=== PATIENT | male | born 1935 | race Caucasian/White ===

== ENCOUNTER 2017-03-20 05:23 | Inpatient (IN) | payer MEDICARE, OTHER ==
[~2017-03-20] VITALS: Ht 172.7 cm; Wt 58.1 kg
--- NOTE | 2017-03-20 05:40 | NUR ---
PT B/B PRIVATE AMBULANCE FROM [facility] TO [facility] . PT WAS PLACED ON 5150 BY TATI WASHINGTON FOR GRAVELY DISABLE. COOPERATIVE AND CALM.
[2017-03-20] MEDS ORDERED: BRIM5DRO3 EACHEYE (06:01)
[2017-03-20] MEDS ORDERED: SUCR1ORA PO (06:01)
[2017-03-20] MEDS ORDERED: VENL75CA56 PO (06:01)
[2017-03-20] MEDS ORDERED: FLUT9.9S NS (06:01)
[2017-03-20] MEDS ORDERED: LEVO25TA2 PO (06:01)
[2017-03-20] MEDS ORDERED: LISI2.5T2 PO (06:01)
[2017-03-20] MEDS ORDERED: BIMA2.5D5 EACHEYE (06:01)
[2017-03-20] MEDS ORDERED: LOPE2TAB25 PO (06:01)
[2017-03-20] MEDS ORDERED: DIGO125T20 PO (06:01)
[2017-03-20] MEDS ORDERED: ACET325T53 PO (06:01)
[2017-03-20] MEDS ORDERED: CARB1DRO7 OP (06:01)
[2017-03-20] MEDS ORDERED: HYDR-3976 PO (06:01)
[2017-03-20] MEDS ORDERED: ATOR80TA PO (06:01)
[2017-03-20] MEDS ORDERED: ALPR0.255 PO (06:01)
[2017-03-20] MEDS ORDERED: MIRT15TA7 PO (06:01)
[2017-03-20] MEDS ORDERED: NITR0.4T SL (06:01)
[2017-03-20] MEDS ORDERED: FERR325T28 PO (06:01)
[2017-03-20] MEDS ORDERED: ZOLP10TA2 PO (06:01)
[2017-03-20] MEDS ORDERED: HYDR20CR3 TOP (06:01)
[2017-03-20] MEDS ORDERED: PANT40TA2 PO (06:01)
[2017-03-20] MEDS ORDERED: CARV6.252 PO (06:01)
--- NOTE | 2017-03-20 06:07 | NUR ---
SEEN AND EVALUATED BY ZULMA ,REPORT GIVEN TO [facility] ADMITTED TO [facility]IA [facility] IN STABLE CONDITION.
[2017-03-20 06:30] VITALS: BP 141/74
[2017-03-20] MEDS ORDERED: MAG HYDROX/AL HYDROX/SIMETH 30 ML LIQUID UDC PO PRN ×2 (06:45→10:00)
[2017-03-20] MEDS ORDERED: ACETAMINOPHEN 325 MG TABLET PO PRN (06:45)
[2017-03-20] MEDS ORDERED: CLONAZEPAM 0.5 MG TABLET PO PRN (06:45)
[2017-03-20] MEDS ORDERED: TEMAZEPAM 7.5 MG CAPSULE PO PRN (06:45)
[2017-03-20] MEDS ORDERED: MAGNESIUM HYDROXIDE 30 ML LIQUID UDC PO PRN ×2 (06:45→10:00)
[2017-03-20 07:30] VITALS: BP 132/87
--- NOTE | 2017-03-20 07:51 | NUR ---
GPS/RN- LAST DIGOXIN LEVEL DRAWN AT [facility] ON 03/19/17 @6273 WAS 0.9.
--- NOTE | 2017-03-20 08:22 | NUR ---
GPS/RN- patient is alert and oriented to person place and time,hard of hearing, patient denies any hallucinations, denies any suicidal or homicidal ideation. patient is cooperative, redirected to current hold, informed of patient rights guidelines and unit rules, pleasant on approach.
--- NOTE | 2017-03-20 10:01 | NUR ---
GPS/RN- Received call from Dr Roe verifying that this patient was admitted, patient is currently under her care at the [facility], confirmed with intake. patient admitted under Dr Pierce in error changed to Dr Dhillon
[2017-03-20] MEDS ORDERED: HYDROCORTISONE 2.5% CREAM 20 GM TUBE TOP PRN (10:30)
[2017-03-20] MEDS ORDERED: NITROGLYCERIN 0.4 MG/TAB BOTTLE SL PRN (10:30)
[2017-03-20] MEDS: VENLAFAXINE XR 37.5 MG CAP.SR.24H PO SCH ×2 (12:22→17:56)
[2017-03-20] MEDS: DIVALPROEX SPRINKLE 125 MG CAP.SPRINK PO SCH ×2 (12:22→20:14)
[2017-03-20] MEDS: SUCRALFATE 1 G/10 ML LIQUID UDC PO SCH ×3 (12:22→20:14)
[2017-03-20] MEDS ORDERED: BRIMONIDINE-P 0.1% OPHTH DROP 5 ML DROPS EACHEYE SCH (13:00)
[2017-03-20] MEDS: BRIMONIDINE 0.2% OPHT DROP 10 ML BOTTLE EACHEYE SCH ×2 (13:40→17:56)
[2017-03-20 16:00] VITALS: BP 111/64
[2017-03-20] MEDS ORDERED: PANTOPRAZOLE SODIUM 40 MG TABLET.DR PO SCH (17:00)
[2017-03-20] MEDS: FLUTICASONE PROP NASAL SPRAY 16 GM BOTTLE NS SCH (17:56)
[2017-03-20] MEDS: CARVEDILOL 6.25 MG TABLET PO SCH (17:57)
[2017-03-20] MEDS ORDERED: BIMATOPROST 0.01% OPHT DROP 2.5 ML BOTTLE EACHEYE SCH (18:00)
[2017-03-20] MEDS: PANTOPRAZOLE SODIUM 40 MG TABLET.DR PO SCH (19:38)
[2017-03-20 19:45] VITALS: BP 105/55
[2017-03-20] MEDS: MIRTAZAPINE 15 MG TABLET PO SCH (20:15)
[2017-03-20] MEDS: ATORVASTATIN 40 MG TABLET PO SCH (20:15)
[2017-03-20] MEDS: LATANOPROST OPHT DROP 2.5 ML BOTTLE EACHEYE SCH (20:23)
[2017-03-20] MEDS ORDERED: ALBUTEROL SULFATE 2.5 MG/ 0.5 ML NEBU NEB PRN (20:30)
[2017-03-20] MEDS ORDERED: Medication Not On Formulary EA (Atorvastatin Calcium (Lipitor) 40 MG) PO SCH (21:00)
[2017-03-20] MEDS: FLUTICASONE/SALMETEROL 250/50 INHALER INH SCH (21:43)
--- NOTE | 2017-03-20 22:00 | NUR ---
received to care, sitting in his room, interacting with his room mate. pleasant upon approach. compliant with medications and staff direction. as of 2199, he is awake, in bed. no distress noted. will continue to monitor closely.
[2017-03-20 22:21] LABS: *BILIRUBIN,URIN NEGATIVE (NEGATIVE); *BLOOD, URINE NEGATIVE (NEGATIVE); *CLARITY,URINE CLEAR (CLEAR); *COLOR,URINE YELLOW (YELLOW); *KETONES,URINE NEGATIVE (NEGATIVE); *PROTEIN,URINE NEGATIVE (NEGATIVE); *UROBILINOGEN,URINE 0.2 E.U./dl (NORMAL); LEUKOCYTE ESTERASE ,URINE NEGATIVE (NEGATIVE); NITRITE, URINE NEGATIVE (NEGATIVE); UGLUCOSE NEGATIVE (NEGATIVE)
[2017-03-20 22:38] LABS: WBC,URINE 0-3 /HPF (0-3)
[2017-03-20] MEDS: ALPRAZOLAM 0.25 MG TABLET PO PRN (22:59)
--- NOTE | 2017-03-20 22:59 | NUR ---
remains awake. pacing the hallway, asking for something to eat. PRN xanax given for anxiety. snack given, and he went back to his room. will continue to monitor closely.
[2017-03-21] MEDS: PANTOPRAZOLE SODIUM 40 MG TABLET.DR PO SCH ×2 (05:55→18:11)
[2017-03-21] MEDS: LEVOTHYROXINE SODIUM 25 MCG TABLET PO SCH (05:55)
--- NOTE | 2017-03-21 06:00 | NUR ---
slept 7 hours, toyolanda.
[2017-03-21 07:12] LABS: BASOPHILS % (AUTO) 0.4 % (0.0-2.0); EOSINOPHILS # (AUTO) 0.2 K/uL (0.0-0.7); EOSINOPHILS % (AUTO) 3.2 % (0.0-7.0); HEMATOCRIT 34.7 % (40-50); HEMOGLOBIN 12.1 G/DL (14.0-18.0); LYMPHOCYTES # (AUTO) 0.8 K/UL (0.8-4.8); LYMPHOCYTES % (AUTO) 14.8 % (20.5-51.5); MEAN CORPUSCULAR HGB CONC 35 g/dL (32.0-37.0); MEAN CORPUSCULAR VOLUME 89.1 FL (82.0-92.0); MONOCYTES # (AUTO) 0.6 K/UL (0.1-1.30); MONOCYTES % (AUTO) 10.4 % (0.0-11.0); NEUTROPHILS # (AUTO) 3.8 K/UL (1.8-8.9); NEUTROPHILS % (AUTO) 71.2 % (38.5-71.5); PLATELET COUNT (AUTO) 124 K/UL (150-450); RED CELL DISTRIBUTION WIDTH 14.2 % (11.5-14.5); WHITE BLOOD COUNT (AUTO) 5.4 K/UL (4.0-11.2)
[2017-03-21 07:27] LABS: THYROID STIMULATING HORMONE 1.642 mIU/mL (0.358-3.740)
[2017-03-21 07:29] LABS: ALBUMIN 3.8 g/dL (3.4-5.0); BILIRUBIN,TOTAL 0.6 mg/dL (0.2-1.0); CALCIUM 8.9 mg/dL (8.5-10.1); CREATININE 1.1 mg/dL (0.6-1.3); MAGNESIUM 1.8 mg/dL (1.8-2.4); PHOSPHOROUS 4.1 mg/dL (2.5-4.9)
[2017-03-21 07:30] VITALS: BP 133/76
[2017-03-21] MEDS: DIGOXIN 125 MCG TABLET PO SCH (08:46)
[2017-03-21] MEDS: ASPIRIN EC 81 MG TABLET.DR PO SCH (08:47)
[2017-03-21] MEDS: DIVALPROEX SPRINKLE 125 MG CAP.SPRINK PO SCH ×2 (08:47→20:01)
[2017-03-21] MEDS: FERROUS SULFATE 325 MG TABEC PO SCH (08:47)
[2017-03-21] MEDS: VENLAFAXINE XR 37.5 MG CAP.SR.24H PO SCH ×2 (08:47→16:59)
[2017-03-21] MEDS: FLUTICASONE/SALMETEROL 250/50 INHALER INH SCH ×2 (08:48→20:02)
[2017-03-21] MEDS: LISINOPRIL 5 MG TABLET PO SCH (09:01)
[2017-03-21] MEDS: SUCRALFATE 1 G/10 ML LIQUID UDC PO SCH ×4 (10:15→20:01)
[2017-03-21] MEDS: CARVEDILOL 6.25 MG TABLET PO SCH ×2 (10:16→16:59)
[2017-03-21] MEDS: FLUTICASONE PROP NASAL SPRAY 16 GM BOTTLE NS SCH ×2 (10:19→17:00)
[2017-03-21] MEDS: BRIMONIDINE 0.2% OPHT DROP 10 ML BOTTLE EACHEYE SCH ×3 (10:19→17:00)
--- NOTE | 2017-03-21 11:03 | NUR ---
GPS/RN- Patient frequently removing hearing aids, redirected frequently redirected to keep on or he will loose them . patient forgetful; continue to monitor.
[2017-03-21] MEDS: ACETAMINOPHEN 325 MG TABLET PO PRN ×2 (11:04→21:15)
--- NOTE | 2017-03-21 12:02 | NUR ---
Initial discharge instructions: Patient resides at the [facility] [[address] [place] [address];[phone]].Per pt,he would like to return there upon discharge.FLORIDALMA called Robyn at the facility and left a voicemail requesting a call back.FLORIDALMA will speak with pt,son,and family regarding appropriate discharge plans.FLORIDALMA will form a safe and proper discharge.
--- NOTE | 2017-03-21 13:32 | NUR ---
GPS/RN- CT CANCELLED. PATIENT HAD CT ON 03/19/17 AT [facility]. COPY OF RESULTS IN CHART , DR HOLLIDAY INFORMED. CT CANCELLED
--- NOTE | 2017-03-21 14:11 | NUR ---
GPS/RN- patient coming to nursing station this afternoon verbalizing "why is there rachel much smoke in the hallways", patient hallucinating, redirected for emotional support, continue to monitor
[2017-03-21 15:05] VITALS: BP 107/57
[2017-03-21] MEDS ORDERED: ARIPIPRAZOLE 2 MG TABLET PO SCH (15:30)
--- NOTE | 2017-03-21 17:41 | NUR ---
pt has been visible on unit all shift in and out of room to day room, minimal peer interaction noted mostly with room mate who was d/c d.atient keeps takind bilateral hearing aides off have to remind him to keep in ears, continue to monitor pt s for safety
[2017-03-21 20:00] VITALS: BP 130/60
[2017-03-21] MEDS: MIRTAZAPINE 15 MG TABLET PO SCH (20:01)
[2017-03-21] MEDS: ATORVASTATIN 40 MG TABLET PO SCH (20:01)
[2017-03-21] MEDS: OLANZAPINE 2.5 MG TABLET PO SCH (20:03)
[2017-03-21] MEDS: LATANOPROST OPHT DROP 2.5 ML BOTTLE EACHEYE SCH (20:03)
[2017-03-21] MEDS ORDERED: OLANZAPINE 2.5 MG TABLET PO SCH (21:00)
--- NOTE | 2017-03-21 21:16 | NUR ---
GPS: PATIENT C/O HEADACHE TYLENOL 650 MG PO GIVEN.
--- NOTE | 2017-03-21 22:16 | NUR ---
GPS: PATIENT STATED I AM FEELING FINE NOW. PRN EFFECTIVE FOR HEADACHE.
[2017-03-21] MEDS: ALPRAZOLAM 0.25 MG TABLET PO PRN (22:35)
--- NOTE | 2017-03-21 22:36 | NUR ---
GPS: PATIENT C/O ANXIETY. XANAX 0.25 MG PO GIVEN.
--- NOTE | 2017-03-21 23:36 | NUR ---
GPS: PATIENT IS CALM NOW PRN EFFECTIVE FOR ANXIETY.
[2017-03-22] MEDS: LEVOTHYROXINE SODIUM 25 MCG TABLET PO SCH (06:09)
[2017-03-22] MEDS: PANTOPRAZOLE SODIUM 40 MG TABLET.DR PO SCH ×2 (06:09→19:59)
--- NOTE | 2017-03-22 06:31 | NUR ---
GPS: PATIENT REMAIN COOPERATIVE.SLEPT 05:30 HRS THROUGH THE NIGHT. CONTINUE PLAN OF CARE.
[2017-03-22] MEDS: SUCRALFATE 1 G/10 ML LIQUID UDC PO SCH ×4 (06:33→20:03)
[2017-03-22 07:30] VITALS: BP 137/74
[2017-03-22] MEDS: ASPIRIN EC 81 MG TABLET.DR PO SCH (09:14)
[2017-03-22] MEDS: VENLAFAXINE XR 37.5 MG CAP.SR.24H PO SCH ×2 (09:15→18:16)
[2017-03-22] MEDS: LISINOPRIL 5 MG TABLET PO SCH (09:15)
[2017-03-22] MEDS: DIVALPROEX SPRINKLE 125 MG CAP.SPRINK PO SCH ×2 (09:15→20:03)
[2017-03-22] MEDS: FERROUS SULFATE 325 MG TABEC PO SCH (09:15)
[2017-03-22] MEDS: CARVEDILOL 6.25 MG TABLET PO SCH ×2 (09:18→18:17)
[2017-03-22] MEDS: DIGOXIN 125 MCG TABLET PO SCH (09:18)
[2017-03-22] MEDS: BRIMONIDINE 0.2% OPHT DROP 10 ML BOTTLE EACHEYE SCH ×3 (09:22→17:00)
[2017-03-22] MEDS: FLUTICASONE PROP NASAL SPRAY 16 GM BOTTLE NS SCH ×2 (09:22→17:00)
[2017-03-22] MEDS: FLUTICASONE/SALMETEROL 250/50 INHALER INH SCH ×2 (09:22→20:02)
[2017-03-22 15:21] VITALS: BP 117/56
[2017-03-22 20:00] VITALS: BP 92/61
[2017-03-22] MEDS: LATANOPROST OPHT DROP 2.5 ML BOTTLE EACHEYE SCH (20:02)
[2017-03-22] MEDS: ATORVASTATIN 40 MG TABLET PO SCH (20:03)
[2017-03-22] MEDS: OLANZAPINE 2.5 MG TABLET PO SCH (20:03)
[2017-03-22] MEDS: MIRTAZAPINE 15 MG TABLET PO SCH (20:03)
[2017-03-22] MEDS: ALPRAZOLAM 0.25 MG TABLET PO PRN (21:28)
[2017-03-22] MEDS: ACETAMINOPHEN 325 MG TABLET PO PRN (21:28)
[2017-03-23] MEDS: SUCRALFATE 1 G/10 ML LIQUID UDC PO SCH ×4 (06:31→20:21)
[2017-03-23] MEDS: PANTOPRAZOLE SODIUM 40 MG TABLET.DR PO SCH ×2 (06:31→19:47)
[2017-03-23] MEDS: LEVOTHYROXINE SODIUM 25 MCG TABLET PO SCH (06:31)
[2017-03-23 07:30] VITALS: BP 120/69
[2017-03-23] MEDS: VENLAFAXINE XR 37.5 MG CAP.SR.24H PO SCH ×2 (08:33→16:08)
[2017-03-23] MEDS: CHOLECALCIFEROL 1,000 UNIT TABLET PO SCH (08:33)
[2017-03-23] MEDS: BRIMONIDINE 0.2% OPHT DROP 10 ML BOTTLE EACHEYE SCH ×3 (08:33→16:08)
[2017-03-23] MEDS: FLUTICASONE/SALMETEROL 250/50 INHALER INH SCH ×2 (08:33→20:25)
[2017-03-23] MEDS: FERROUS SULFATE 325 MG TABEC PO SCH (08:33)
[2017-03-23] MEDS: FLUTICASONE PROP NASAL SPRAY 16 GM BOTTLE NS SCH ×2 (08:33→16:08)
[2017-03-23] MEDS: ASPIRIN EC 81 MG TABLET.DR PO SCH (08:34)
[2017-03-23] MEDS: DIVALPROEX SPRINKLE 125 MG CAP.SPRINK PO SCH ×2 (08:34→20:21)
[2017-03-23] MEDS: CARVEDILOL 6.25 MG TABLET PO SCH ×2 (08:34→17:09)
[2017-03-23] MEDS: LISINOPRIL 5 MG TABLET PO SCH (08:34)
[2017-03-23] MEDS: DIGOXIN 125 MCG TABLET PO SCH (08:34)
[2017-03-23 15:00] VITALS: BP 111/53
[2017-03-23 20:16] VITALS: BP 109/59
[2017-03-23] MEDS: ATORVASTATIN 40 MG TABLET PO SCH (20:20)
[2017-03-23] MEDS: MIRTAZAPINE 15 MG TABLET PO SCH (20:20)
[2017-03-23] MEDS: OLANZAPINE 2.5 MG TABLET PO SCH (20:21)
[2017-03-23] MEDS: LATANOPROST OPHT DROP 2.5 ML BOTTLE EACHEYE SCH (20:25)
[2017-03-23] MEDS: ALPRAZOLAM 0.25 MG TABLET PO PRN (21:54)
[2017-03-23] MEDS: ACETAMINOPHEN 325 MG TABLET PO PRN (21:55)
[2017-03-24] MEDS: LEVOTHYROXINE SODIUM 25 MCG TABLET PO SCH ×2 (06:34→07:00)
[2017-03-24] MEDS: SUCRALFATE 1 G/10 ML LIQUID UDC PO SCH ×5 (06:34→20:05)
[2017-03-24] MEDS: PANTOPRAZOLE SODIUM 40 MG TABLET.DR PO SCH ×3 (06:34→20:05)
[2017-03-24 07:30] VITALS: BP 131/64
[2017-03-24] MEDS: BRIMONIDINE 0.2% OPHT DROP 10 ML BOTTLE EACHEYE SCH ×3 (08:12→16:01)
[2017-03-24] MEDS: FLUTICASONE PROP NASAL SPRAY 16 GM BOTTLE NS SCH ×2 (08:13→16:00)
[2017-03-24] MEDS: FLUTICASONE/SALMETEROL 250/50 INHALER INH SCH ×2 (08:14→20:04)
[2017-03-24] MEDS: ASPIRIN EC 81 MG TABLET.DR PO SCH (08:15)
[2017-03-24] MEDS: LISINOPRIL 5 MG TABLET PO SCH (08:15)
[2017-03-24] MEDS: DIVALPROEX SPRINKLE 125 MG CAP.SPRINK PO SCH ×2 (08:15→20:05)
[2017-03-24] MEDS: CHOLECALCIFEROL 1,000 UNIT TABLET PO SCH (08:15)
[2017-03-24] MEDS: FERROUS SULFATE 325 MG TABEC PO SCH (08:15)
[2017-03-24] MEDS: VENLAFAXINE XR 37.5 MG CAP.SR.24H PO SCH ×2 (08:15→16:01)
[2017-03-24] MEDS: DIGOXIN 125 MCG TABLET PO SCH (08:15)
[2017-03-24] MEDS: CARVEDILOL 6.25 MG TABLET PO SCH ×2 (08:15→17:19)
[2017-03-24 16:12] VITALS: BP 127/67
[2017-03-24] MEDS: LATANOPROST OPHT DROP 2.5 ML BOTTLE EACHEYE SCH (20:04)
[2017-03-24] MEDS: MIRTAZAPINE 15 MG TABLET PO SCH (20:05)
[2017-03-24] MEDS: OLANZAPINE 2.5 MG TABLET PO SCH (20:05)
[2017-03-24] MEDS: ATORVASTATIN 40 MG TABLET PO SCH (20:05)
[2017-03-24 20:33] VITALS: BP 100/58
[2017-03-24] MEDS: ALPRAZOLAM 0.25 MG TABLET PO PRN (21:22)
[2017-03-25] MEDS: LEVOTHYROXINE SODIUM 25 MCG TABLET PO SCH (06:15)
[2017-03-25] MEDS: SUCRALFATE 1 G/10 ML LIQUID UDC PO SCH ×4 (06:15→20:29)
[2017-03-25] MEDS: PANTOPRAZOLE SODIUM 40 MG TABLET.DR PO SCH ×2 (06:15→18:08)
[2017-03-25 07:42] VITALS: BP 116/65
[2017-03-25 08:09] LABS: ALBUMIN 3.9 g/dL (3.4-5.0); BILIRUBIN,TOTAL 0.5 mg/dL (0.2-1.0); CALCIUM 9.3 mg/dL (8.5-10.1); CREATININE 1.1 mg/dL (0.6-1.3); MAGNESIUM 2.1 mg/dL (1.8-2.4); PHOSPHOROUS 4.4 mg/dL (2.5-4.9); POTASSIUM 4.6 mmol/L (3.5-5.1); TOTAL PROTEIN, SERUM 7.2 g/dL (6.4-8.2)
[2017-03-25 08:23] LABS: BASOPHILS % (AUTO) 0.3 % (0.0-2.0); EOSINOPHILS # (AUTO) 0.2 K/uL (0.0-0.7); EOSINOPHILS % (AUTO) 3.9 % (0.0-7.0); HEMATOCRIT 35.4 % (40-50); HEMOGLOBIN 12.1 G/DL (14.0-18.0); LYMPHOCYTES # (AUTO) 1.1 K/UL (0.8-4.8); LYMPHOCYTES % (AUTO) 18.9 % (20.5-51.5); MEAN CORPUSCULAR HEMOGLOBIN 30.8 UUG (27.0-31.0); MEAN CORPUSCULAR HGB CONC 34 g/dL (32.0-37.0); MONOCYTES # (AUTO) 0.6 K/UL (0.1-1.30); NEUTROPHILS % (AUTO) 66.9 % (38.5-71.5); PLATELET COUNT (AUTO) 129 K/UL (150-450); RED BLOOD CELL COUNT(AUTO) 3.93 MIL/UL (4.7-6.1); RED CELL DISTRIBUTION WIDTH 14.1 % (11.5-14.5); WHITE BLOOD COUNT (AUTO) 5.9 K/UL (4.0-11.2)
[2017-03-25] MEDS: FLUTICASONE PROP NASAL SPRAY 16 GM BOTTLE NS SCH ×2 (09:21→17:01)
[2017-03-25] MEDS: FERROUS SULFATE 325 MG TABEC PO SCH (09:22)
[2017-03-25] MEDS: FLUTICASONE/SALMETEROL 250/50 INHALER INH SCH ×2 (09:22→20:28)
[2017-03-25] MEDS: ASPIRIN EC 81 MG TABLET.DR PO SCH (09:22)
[2017-03-25] MEDS: BRIMONIDINE 0.2% OPHT DROP 10 ML BOTTLE EACHEYE SCH ×3 (09:22→17:01)
[2017-03-25] MEDS: CARVEDILOL 6.25 MG TABLET PO SCH ×2 (09:23→17:02)
[2017-03-25] MEDS: DIVALPROEX SPRINKLE 125 MG CAP.SPRINK PO SCH ×2 (09:23→20:29)
[2017-03-25] MEDS: VENLAFAXINE XR 37.5 MG CAP.SR.24H PO SCH ×2 (09:23→17:00)
[2017-03-25] MEDS: LISINOPRIL 5 MG TABLET PO SCH (09:24)
[2017-03-25] MEDS: DIGOXIN 125 MCG TABLET PO SCH (09:24)
[2017-03-25] MEDS: CHOLECALCIFEROL 1,000 UNIT TABLET PO SCH (09:33)
[2017-03-25] MEDS ORDERED: TEMAZEPAM 7.5 MG CAPSULE PO PRN (10:45)
[2017-03-25 16:08] VITALS: BP 97/56
[2017-03-25] MEDS: ACETAMINOPHEN 325 MG TABLET PO PRN ×2 (17:00→20:29)
[2017-03-25] MEDS: LATANOPROST OPHT DROP 2.5 ML BOTTLE EACHEYE SCH (20:28)
[2017-03-25] MEDS: MIRTAZAPINE 15 MG TABLET PO SCH (20:29)
[2017-03-25] MEDS: ATORVASTATIN 40 MG TABLET PO SCH (20:29)
[2017-03-25] MEDS: OLANZAPINE 2.5 MG TABLET PO SCH (20:29)
--- NOTE | 2017-03-25 20:30 | NUR ---
PT'S A/A/O X3,WATCHING TV AT THIS TIME;DENIED OF PAIN OR ANY DISCOMFORT.PT'S COOPERATIVE W/CARE AND MEDICATIONS ORDER;EDUCATED TO PT PRIOR GAVE MED;PT VERBALIZED UNDERSTANDING AND TOLERATED WELL,PT STATED THAT"I'VE BEEN TAKING THESE MEDICATIONS FOR LONG TIME,I KNOW ABOUT IT".PT'S ABLE TO PERFORM ADL'S BY HIMSELF NOTED.CONTINUED MONITORING TO PT.
[2017-03-25 20:39] VITALS: BP 119/68
[2017-03-25] MEDS: ALPRAZOLAM 0.25 MG TABLET PO PRN (22:30)
[2017-03-26] MEDS: LEVOTHYROXINE SODIUM 25 MCG TABLET PO SCH (06:13)
[2017-03-26] MEDS: PANTOPRAZOLE SODIUM 40 MG TABLET.DR PO SCH (06:13)
--- NOTE | 2017-03-26 06:30 | NUR ---
PT SLEPT WELL IN THE SHIFT,TOTAL FOR 8 HOURS,COOPERATIVE W/CARE AND COMPLIANT WITH MEDICATION ORDER.NO DISTRESS NOTD IN THE SHIFT.PT REMAINED FREE FROM INJURY.
[2017-03-26 07:30] VITALS: BP 129/71
[2017-03-26] MEDS: FLUTICASONE/SALMETEROL 250/50 INHALER INH SCH (08:36)
[2017-03-26] MEDS: SUCRALFATE 1 G/10 ML LIQUID UDC PO SCH ×3 (08:37→16:38)
[2017-03-26] MEDS: FLUTICASONE PROP NASAL SPRAY 16 GM BOTTLE NS SCH ×2 (08:37→16:38)
[2017-03-26] MEDS: BRIMONIDINE 0.2% OPHT DROP 10 ML BOTTLE EACHEYE SCH ×3 (08:38→16:40)
[2017-03-26] MEDS: VENLAFAXINE XR 37.5 MG CAP.SR.24H PO SCH ×2 (08:38→16:38)
[2017-03-26] MEDS: ASPIRIN EC 81 MG TABLET.DR PO SCH (08:38)
[2017-03-26] MEDS: FERROUS SULFATE 325 MG TABEC PO SCH (08:38)
[2017-03-26] MEDS: CHOLECALCIFEROL 1,000 UNIT TABLET PO SCH (08:38)
[2017-03-26] MEDS: LISINOPRIL 5 MG TABLET PO SCH (08:39)
[2017-03-26] MEDS: DIVALPROEX SPRINKLE 125 MG CAP.SPRINK PO SCH (08:39)
[2017-03-26] MEDS: CARVEDILOL 6.25 MG TABLET PO SCH (08:40)
[2017-03-26] MEDS: DIGOXIN 125 MCG TABLET PO SCH (08:40)
[2017-03-26] MEDS: ACETAMINOPHEN 325 MG TABLET PO PRN (10:18)
--- NOTE | 2017-03-26 12:24 | NUR ---
DC Note: Patient will be discharged today to [facility] [[address] [place], [place],[address]; [phone]] via ambulance at 3:00 pm. Please schedule an ambulance for the patient. Spoke with Robyn at the facility who stated she would accept the patient today. Spoke with patient's son, Jarad [phone] who is aware and agreeable with discharge plans. Patient is aware and agreeable with discharge plans. Patient will follow-up with (Funeral Prearrangement Counselor) and (Psychiatrist) at the facility.
[2017-03-26 16:05] VITALS: BP 123/64
--- NOTE | 2017-03-26 16:45 | NUR ---
GPS: Nursing Notes: Discharge Notes: Patient awake and responding to his name, cooperative with nursing care and compliant with medications, cooperative with staff, denies any SI/HI, denies any AH/VH, denies any SOB, denies any pain or discomfort, discharge to [facility] [place] [address] [place], [address] , report given to nurse Renay ARNOLD, transported via ambulance to facility, instructions and prescriptions given to well service floor worker, took all his belongings with him, Dr. Dhillon (psychiatrist) and Dr. Delacruz (java developer with security clearance) will continue with aftercare at the facility, Patient's son Jarad was notify by social research assistant.
== END 2017-03-26 16:45 | DRG 885 ==
LOC: ER 05:37 → GPS 06:02
PROVIDERS: ADMIT Psychiatry & Neurology Psychosomatic Medicine
DX: F29 Unspecified psychosis not due to a substance or known physiological condition (principal); I11.0 Hypertensive heart disease with heart failure; I50.43 Acute on chronic combined systolic (congestive) and diastolic (congestive) heart failure; D68.59 Other primary thrombophilia; E03.9 Hypothyroidism, unspecified; I25.10 Atherosclerotic heart disease of native coronary artery without angina pectoris; I25.2 Old myocardial infarction; F41.9 Anxiety disorder, unspecified; G89.29 Other chronic pain; H91.90 Unspecified hearing loss, unspecified ear; K21.9 Gastro-esophageal reflux disease without esophagitis; Z95.0 Presence of cardiac pacemaker; Z95.2 Presence of prosthetic heart valve; M54.30 Sciatica, unspecified side; F32.9 Major depressive disorder, single episode, unspecified; F03.90 Unspecified dementia, unspecified severity, without behavioral disturbance, psychotic disturbance, mood disturbance, and anxiety; E78.5 Hyperlipidemia, unspecified; E55.9 Vitamin D deficiency, unspecified; D69.6 Thrombocytopenia, unspecified; R19.5 Other fecal abnormalities; I05.9 Rheumatic mitral valve disease, unspecified; I25.5 Ischemic cardiomyopathy; R73.03 Prediabetes; I27.2 Other secondary pulmonary hypertension; I09.9 Rheumatic heart disease, unspecified; Z79.899 Other long term (current) drug therapy
CPT/HCPCS: 36415; 71010; 80164; 82306; 83735; 84100; 84443; 85025; 87086; 93005; 93307; 97001; A4663; J3535